=== PATIENT | female | born 1980 ===

== ENCOUNTER 2017-08-17 21:48 | Inpatient (IN) | payer OTHER ==
[~2017-08-17] VITALS: Ht 170.2 cm; Wt 85.9 kg
[2017-08-17 23:13] LABS: BASOPHILS ABSOLUTE AUTO 0.06 K/mm3 (0.00-0.23); BASOPHILS PERCENT AUTO 1 % (0-2); EOSINOPHILS ABSOLUTE AUTO 0.09 K/mm3 (0.00-0.68); EOSINOPHILS PERCENT AUTO 1 % (0-6); Hematocrit 36.5 % (33.0-51.0); IMMATURE GRAN ABSOLUTE AUTO 0.06 K/mm3 (0.00-0.10); IMMATURE GRAN PERCENT AUTO 1 % (0-1); LYMPHOCYTES ABSOLUTE AUTO 2.07 K/mm3 (0.84-5.20); LYMPHOCYTES PERCENT AUTO 18 % (21-46); MONOCYTES ABSOLUTE AUTO 0.84 K/mm3 (0.16-1.47); MONOCYTES PERCENT AUTO 7 % (4-13); Mean Corpuscular HGB 30.7 pg (26.0-34.0); Mean Corpuscular HGB Conc 35.6 g/dL (31.5-36.5); Mean Corpuscular Volume 86 fL (80-100); Mean Platelet Volume 10.9 fL (9.1-12.4); NEUTROPHILS ABSOLUTE AUTO 8.56 K/mm3 (1.96-9.15); NEUTROPHILS PERCENT AUTO 73 % (41-73); Platelet Count 198 K/mm3 (150-400); RDW Coefficient Variation 11.8 % (11.7-14.2); RDW Standard Deviation 36.8 fL (35.1-46.3); Red Blood Cell Count 4.23 M/mm3 (3.80-5.20); White Blood Cell Count 11.68 K/mm3 (4.00-11.30)
[2017-08-17] MEDS ORDERED: RANI150 PO (23:21)
[2017-08-17] MEDS ORDERED: Verotin-Gr Cap1 EACH PO (23:21)
[2017-08-19 06:18] LABS: BASOPHILS ABSOLUTE AUTO 0.04 K/mm3 (0.00-0.23); BASOPHILS PERCENT AUTO 0 % (0-2); EOSINOPHILS ABSOLUTE AUTO 0.12 K/mm3 (0.00-0.68); EOSINOPHILS PERCENT AUTO 1 % (0-6); Hematocrit 36.2 % (33.0-51.0); Hemoglobin 12.8 g/dL (11.5-16.0); IMMATURE GRAN PERCENT AUTO 1 % (0-1); LYMPHOCYTES ABSOLUTE AUTO 2.59 K/mm3 (0.84-5.20); LYMPHOCYTES PERCENT AUTO 22 % (21-46); MONOCYTES ABSOLUTE AUTO 0.73 K/mm3 (0.16-1.47); MONOCYTES PERCENT AUTO 6 % (4-13); Mean Corpuscular HGB 31.2 pg (26.0-34.0); Mean Corpuscular HGB Conc 35.4 g/dL (31.5-36.5); Mean Corpuscular Volume 88 fL (80-100); Mean Platelet Volume 10.5 fL (9.1-12.4); NEUTROPHILS ABSOLUTE AUTO 8.26 K/mm3 (1.96-9.15); NEUTROPHILS PERCENT AUTO 70 % (41-73); Platelet Count 198 K/mm3 (150-400); White Blood Cell Count 11.84 K/mm3 (4.00-11.30)
[2017-08-19] MEDS ORDERED: IBUP800 PO (15:46)
== END 2017-08-19 17:30 | disposition home or self-care (01) | DRG 775 ==
LOC: OBS 21:48 → BC 21:52 → OBS 22:40 → BC 22:42
PROVIDERS: Nurse Practitioner Obstetrics & Gynecology
PROC: 10E0XZZ Delivery of Products of Conception, External Approach (ICD-10-PCS; principal; 2017-08-18)
DX: O99.824 Streptococcus B carrier state complicating childbirth (principal); Z37.0 Single live birth; Z3A.37 37 weeks gestation of pregnancy
CPT/HCPCS: 36415; 51702; 85025; 87210; J0290; J1885; J2210; J2590; J3010; J7120

== ENCOUNTER 2018-07-23 08:06 | Day surgery (SDC) | payer BC ==
[~2018-07-23] VITALS: Ht 170.2 cm; Wt 82.8 kg
[~2018-07-23 08:06] MED LIST: IBUP800 PO; RANI150 PO; Verotin-Gr Cap1 EACH PO
[2018-07-23] MEDS ORDERED: Verotin-Gr Cap1 EACH PO (08:39)
[2018-07-23] MEDS ORDERED: ISIBLOOM 28 DA1 EACH PO (08:39)
[2018-07-23] MEDS ORDERED: Stool Softener100 MG PO (08:39)
[2018-07-23] MEDS ORDERED: ERGO400 PO (08:40)
--- NOTE | 2018-07-23 08:47 | NUR ---
07/23/18 0847 Cassie Bello V PT RESTING IN BED, SIDE RAILS IN PLACE, CALL LIGHT WITHIN REACH, VSS. PT TEACHING COMPLETED. PT DENIES PAIN, DISCOMFORT AND QUESTIONS AT THIS TIME.
--- NOTE | 2018-07-23 11:44 | NUR ---
07/23/18 1144 Kimberly Hale (Salma [id number] assumed care of pt from [email or web address]
== END 2018-07-23 13:00 | disposition home or self-care (01) ==
LOC: ORSCSDS 08:06
PROVIDERS: Obstetrics & Gynecology
PROC: 0UDB8ZX Extraction of Endometrium, Via Natural or Artificial Opening Endoscopic, Diagnostic (ICD-10-PCS; principal; 2018-07-23 09:30)
DX: N84.0 Polyp of corpus uteri (principal); N85.6 Intrauterine synechiae
CPT/HCPCS: 88305; J0690; J1100; J1885; J2250; J2405; J3010; J7120

== ENCOUNTER 2019-11-10 16:55 | Inpatient (IN) | payer OTHER, BC ==
[~2019-11-10] VITALS: Ht 170.2 cm; Wt 87.0 kg
[~2019-11-10 16:55] MED LIST changes: +ERGO400 PO; +ISIBLOOM 28 DA1 EACH PO; +Stool Softener100 MG PO
[2019-11-10 18:12] LABS: BASOPHILS ABSOLUTE AUTO 0.06 K/mm3 (0.00-0.23); BASOPHILS PERCENT AUTO 1 % (0-2); EOSINOPHILS ABSOLUTE AUTO 0.07 K/mm3 (0.00-0.68); EOSINOPHILS PERCENT AUTO 1 % (0-6); Hematocrit 36.2 % (33.0-51.0); Hemoglobin 12.8 g/dL (11.5-16.0); IMMATURE GRAN ABSOLUTE AUTO 0.08 K/mm3 (0.00-0.10); IMMATURE GRAN PERCENT AUTO 1 % (0-1); LYMPHOCYTES ABSOLUTE AUTO 1.74 K/mm3 (0.84-5.20); LYMPHOCYTES PERCENT AUTO 18 % (21-46); MONOCYTES ABSOLUTE AUTO 0.87 K/mm3 (0.16-1.47); MONOCYTES PERCENT AUTO 9 % (4-13); Mean Corpuscular HGB 31.6 pg (26.0-34.0); Mean Corpuscular HGB Conc 35.4 g/dL (31.5-36.5); Mean Corpuscular Volume 89 fL (80-100); Mean Platelet Volume 10.4 fL (9.1-12.4); NEUTROPHILS ABSOLUTE AUTO 6.82 K/mm3 (1.96-9.15); NEUTROPHILS PERCENT AUTO 71 % (41-73); Platelet Count 258 K/mm3 (150-400); RDW Coefficient Variation 11.6 % (11.7-14.2); RDW Standard Deviation 37.5 fL (35.1-46.3); Red Blood Cell Count 4.05 M/mm3 (3.80-5.20); White Blood Cell Count 9.64 K/mm3 (4.00-11.30)
[2019-11-11 04:35] LABS: Hematocrit 32.9 % (33.0-51.0); Hemoglobin 11.3 g/dL (11.5-16.0); Mean Corpuscular HGB 31.1 pg (26.0-34.0); Mean Corpuscular HGB Conc 34.3 g/dL (31.5-36.5); Mean Corpuscular Volume 91 fL (80-100); Mean Platelet Volume 10.3 fL (9.1-12.4); Platelet Count 222 K/mm3 (150-400); RDW Coefficient Variation 11.5 % (11.7-14.2); RDW Standard Deviation 38.3 fL (35.1-46.3); Red Blood Cell Count 3.63 M/mm3 (3.80-5.20)
[2019-11-11 12:33] LABS: Hematocrit 34.5 % (33.0-51.0); Hemoglobin 11.8 g/dL (11.5-16.0); Mean Corpuscular HGB Conc 34.2 g/dL (31.5-36.5); Mean Corpuscular Volume 91 fL (80-100); Mean Platelet Volume 10.2 fL (9.1-12.4); Platelet Count 232 K/mm3 (150-400); RDW Coefficient Variation 11.6 % (11.7-14.2); Red Blood Cell Count 3.81 M/mm3 (3.80-5.20); White Blood Cell Count 18.65 K/mm3 (4.00-11.30)
--- NOTE | 2019-11-11 14:11 | NUR ---
ASSUME PT CARE. PT SLEEPING.
--- NOTE | 2019-11-11 14:25 | NUR ---
REPORT GIVEN TO Gualberto ESTEBAN RN
--- NOTE | 2019-11-11 16:18 | NUR ---
0730 ASSUMED CARE OF PATIENT AWAKE AND RESTING. STATES SHE IS TIRED. BABY IS AT NURSES STATION AT PRESENT. VVS ASSESSMENT WNL. PATIENT WILL CALL WHEN READ TO GET OOB AND SHOWER
--- NOTE | 2019-11-11 16:19 | NUR ---
1030 GAMBOA DCD. PATIENT OOB TO SHOWER, TOLERATED WELL, VOIDED WITHOUT DIFFICULTY
--- NOTE | 2019-11-11 16:19 | NUR ---
1500 REASSUMED CARE, PATIENT RESTING
[2019-11-12 05:25] LABS: BASOPHILS ABSOLUTE AUTO 0.04 K/mm3 (0.00-0.23); BASOPHILS PERCENT AUTO 0 % (0-2); EOSINOPHILS ABSOLUTE AUTO 0.14 K/mm3 (0.00-0.68); EOSINOPHILS PERCENT AUTO 1 % (0-6); Hematocrit 29.4 % (33.0-51.0); Hemoglobin 10.3 g/dL (11.5-16.0); IMMATURE GRAN PERCENT AUTO 1 % (0-1); LYMPHOCYTES ABSOLUTE AUTO 2.46 K/mm3 (0.84-5.20); LYMPHOCYTES PERCENT AUTO 24 % (21-46); MONOCYTES ABSOLUTE AUTO 0.78 K/mm3 (0.16-1.47); MONOCYTES PERCENT AUTO 8 % (4-13); Mean Corpuscular HGB 31.5 pg (26.0-34.0); Mean Corpuscular Volume 90 fL (80-100); Mean Platelet Volume 10.4 fL (9.1-12.4); NEUTROPHILS PERCENT AUTO 66 % (41-73); Platelet Count 211 K/mm3 (150-400); RDW Coefficient Variation 11.9 % (11.7-14.2); RDW Standard Deviation 38.5 fL (35.1-46.3); Red Blood Cell Count 3.27 M/mm3 (3.80-5.20); White Blood Cell Count 10.32 K/mm3 (4.00-11.30)
[2019-11-12] MEDS ORDERED: IBUP800 PO (14:59)
--- NOTE | 2019-11-12 15:15 | NUR ---
Printd d/c instructions reviewed w/experienced mother. Declined follow up appointment. Motrin prescription given. No acute changes t/o shift. Pt d/c'd home ambulatory.
== END 2019-11-12 15:08 | disposition home or self-care (01) | DRG 807 ==
LOC: OBS 16:55 → BC 17:16
PROVIDERS: ADMIT Nurse Practitioner Obstetrics & Gynecology
PROC: 10E0XZZ Delivery of Products of Conception, External Approach (ICD-10-PCS; principal; 2019-11-11)
PROC: 10D17Z9 Manual Extraction of Products of Conception, Retained, Via Natural or Artificial Opening (ICD-10-PCS; 2019-11-11)
PROC: 3E0P7GC Introduction of Other Therapeutic Substance into Female Reproductive, Via Natural or Artificial Opening (ICD-10-PCS; 2019-11-11)
DX: O72.0 Third-stage hemorrhage (principal); Z37.0 Single live birth; Z3A.39 39 weeks gestation of pregnancy
CPT/HCPCS: 36415; 51702; 85025; 85027; 86850; 86900; 86901; 86923; A9270; C9113; J0690; J1885; J2001; J2210; J2405; J2590; J3010; J7120

== ENCOUNTER 2020-12-28 07:28 | Day surgery (SDC) | payer BC, OTHER ==
[~2020-12-28] VITALS: Ht 170.2 cm; Wt 82.1 kg
[2020-12-28] MEDS ORDERED: COLACE100 MG PO (08:00)
== END 2020-12-28 10:02 | disposition home or self-care (01) ==
LOC: ORSCSDS 07:28
PROVIDERS: Obstetrics & Gynecology
PROC: 0UDB8ZX Extraction of Endometrium, Via Natural or Artificial Opening Endoscopic, Diagnostic (ICD-10-PCS; principal; 2020-12-28 08:45)
DX: N85.6 Intrauterine synechiae (principal); N73.6 Female pelvic peritoneal adhesions (postinfective)
CPT/HCPCS: 88305; J0690; J1100; J1885; J2250; J2405; J2704; J3010; J7120

== ENCOUNTER 2021-08-01 10:04 | Day surgery (SDC) | payer OTHER ==
[~2021-08-01] VITALS: Ht 170.2 cm; Wt 85.4 kg
[~2021-08-01 10:04] MED LIST changes: +COLACE100 MG PO
--- NOTE | 2021-08-01 12:08 | NUR ---
08/01/21 1208 Josias Gutierrez PATIENT UNABLE TO REMOVE HAMM PIERCING. EXTRA CARE TAKEN DURING PREP. PIERCING CHECKED AT END OF CARE AND NO REDNESS OR DAMAGE NOTED.
== END 2021-08-01 12:52 | disposition home or self-care (01) ==
LOC: ORSCSDS 10:04
PROVIDERS: Obstetrics & Gynecology
PROC: 0UJD8ZZ Inspection of Uterus and Cervix, Via Natural or Artificial Opening Endoscopic (ICD-10-PCS; principal; 2021-08-01 11:15)
DX: N84.0 Polyp of corpus uteri (principal)
CPT/HCPCS: A9270; J1100; J2405; J2704; J3010

== ENCOUNTER 2023-05-24 21:08 | Emergency (ER) | payer OTHER ==
[~2023-05-24] VITALS: Ht 170.2 cm; Wt 86.2 kg
[2023-05-24 21:37] LABS: BASOPHILS ABSOLUTE AUTO 0.05 K/mm3 (0.00-0.23); BASOPHILS PERCENT AUTO 1 % (0-2); EOSINOPHILS ABSOLUTE AUTO 0.08 K/mm3 (0.00-0.68); EOSINOPHILS PERCENT AUTO 1 % (0-6); Hematocrit 37.6 % (33.0-51.0); IMMATURE GRAN ABSOLUTE AUTO 0.02 K/mm3 (0.00-0.10); IMMATURE GRAN PERCENT AUTO 0 % (0-1); LYMPHOCYTES PERCENT AUTO 44 % (21-46); MONOCYTES ABSOLUTE AUTO 0.59 K/mm3 (0.16-1.47); MONOCYTES PERCENT AUTO 8 % (4-13); Mean Corpuscular HGB 29.8 pg (26.0-34.0); Mean Corpuscular HGB Conc 34.6 g/dL (31.5-36.5); Mean Corpuscular Volume 86 fL (80-100); Mean Platelet Volume 10.4 fL (9.1-12.4); NEUTROPHILS ABSOLUTE AUTO 3.49 K/mm3 (1.96-9.15); NEUTROPHILS PERCENT AUTO 46 % (41-73); Platelet Count 232 K/mm3 (150-400); RDW Coefficient Variation 11.5 % (11.7-14.2); Red Blood Cell Count 4.36 M/mm3 (3.80-5.20); White Blood Cell Count 7.53 K/mm3 (4.00-11.30)
[2023-05-24 21:59] LABS: Albumin, Blood 3.6 g/dL (3.4-5.0); Bilirubin, Total 0.2 mg/dL (0.1-1.0); Bun/Creatinine Ratio 16.6 (12.0-20.0); Calcium, Blood 8.4 mg/dL (8.5-10.1); Creatinine, Blood 0.72 mg/dL (0.40-1.00); Globulin, Blood 3.7 g/dL (2.2-4.0); Potassium, Blood 3.4 mmol/L (3.5-5.5); Total Protein, Blood 7.3 g/dL (6.4-8.2)
[2023-05-24] MEDS ORDERED: ONDA4ODT MM (22:32)
[2023-05-24 22:46] VITALS: BP 148/74
== END 2023-05-24 22:43 | disposition home or self-care (01) ==
LOC: ER 21:08
PROVIDERS: Physician Assistant
DX: R11.2 Nausea with vomiting, unspecified (principal); Z79.899 Other long term (current) drug therapy
CPT/HCPCS: 80053; 83690; 85025; 96374; 99283-25; A9270; J2405